=== PATIENT | male | born 1955 | race American Indian/Alaskan Native ===

== ENCOUNTER 2017-05-16 14:10 | Emergency (ER) | payer MEDICAID ==
[2017-05-16 14:10] VITALS: BMI 25.0
[2017-05-16 14:17] VITALS: BP 128/85; PULSE 96; RESP 20; TEMP 98; O2SAT 100
--- NOTE | 2017-05-16 15:41 | ED PDOC ---
HPI: Psych/Substance Abuse Time Seen by Provider: 05/16/17 14:36 Chief Complaint (Nursing): Psychiatric Evaluation Chief Complaint (Provider): Psychiatric Evaluation History Per: Patient Additional Complaint(s): Pt brought in by EMS for public intoxication. Pt. admits to drinking alcohol. Offers no complaints. Past Medical History Reviewed: Historical Data, Nursing Documentation, Vital Signs Vital Signs: Last Vital Signs Temp 98 F 05/16/17 14:16 Pulse 96 H 05/16/17 14:16 Resp 20 05/16/17 14:16 BP 128/85 05/16/17 14:16 Pulse Ox 100 05/16/17 14:16 - Medical History PMH: Denies: Diabetes, Hepatitis, HIV, HTN, Seizures, Sexually Transmitted Disease - Family History Family History: States: No Known Family Hx - Immunization History Hx Tetanus Toxoid Vaccination: No Hx Influenza Vaccination: No Hx Pneumococcal Vaccination: No - Home Medications Home Medications: Ambulatory Orders Medication Instructions Recorded No Known Home Med 12/20/16 - Allergies Allergies/Adverse Reactions: Allergies Allergy/AdvReac Type Severity Reaction Status Date / Time Penicillins Allergy Verified 04/19/17 09:09 Review of Systems Review Of Systems: ROS cannot be obtained secondary to pt's inabilty to answer questions. (Caveat: Intoxication) Physical Exam - Reviewed Nursing Documentation Reviewed: Yes Vital Signs Reviewed: Yes - Physical Exam Appears: Positive for: Well, Non-toxic, No Acute Distress Head Exam: Positive for: ATRAUMATIC, NORMAL INSPECTION, NORMOCEPHALIC Skin: Positive for: Normal Color, Warm, DRY Eye Exam: Positive for: EOMI, Normal appearance, PERRL ENT: Positive for: Normal ENT Inspection Neck: Positive for: Normal, Painless ROM Cardiovascular/Chest: Positive for: Regular Rate, Rhythm Respiratory: Positive for: CNT, Normal Breath Sounds Gastrointestinal/Abdominal: Positive for: Normal Exam, Bowel Sounds, Soft. Negative for: Tenderness Back: Positive for: Normal Inspection Extremity: Positive for: Normal ROM Neurologic/Psych: Positive for: Alert, Oriented, Other (Slurred Speech, EtOH breath, very uncooperative) - ECG O2 Sat by Pulse Oximetry: 100 (RA) Pulse Ox Interpretation: Normal - Progress ED Course And Treament: 1940 Pt. requesting to be dc'd. Gait steady unassisted. Medical Decision Making Medical Decision Making: Time: 15:08 Plan: - Alcohol Serum - Glucose, Blood, POC Scribe Attestation: Documented by Gavin Huffman, acting as a scribe for Noah Goldman PA-C Provider Scribe Attestation: All medical record entries made by the Scribe were at my direction and personally dictated by me. I have reviewed the chart and agree that the record accurately reflects my personal performance of the history, physical exam, medical decision making, and the department course for this patient. I have also personally directed, reviewed, and agree with the discharge instructions and disposition. Disposition - Clinical Impression Clinical Impression: Alcohol intoxication - Patient ED Disposition Is Patient to be Admitted: No - Disposition Disposition: Routine/Home Disposition Time: 19:40 Condition: IMPROVED Instructions: Alcohol Intoxication (ED) Forms: [employer] (Lao) Print Language: [id number]
== END 2017-05-16 19:40 | disposition home or self-care (01) ==
LOC: H.ER 14:10
DX: F10.129 Alcohol abuse with intoxication, unspecified (principal); Z88.0 Allergy status to penicillin